=== PATIENT | female | born 1950 | race Caucasian/White ===

== ENCOUNTER 2017-02-25 22:52 | Observation (INO) | payer OTHER ==
[~2017-02-25] VITALS: Ht 160 cm; Wt 77.2 kg
--- NOTE | ~2017-02-25 | DS ---
PATIENT'S NAME: JERRY PERRY [facility] AGE: 66 Y [address] ROOM: [address] [place], [place] [address] LOCATION: [facility] ADMIT DATE: 02/26/2017 Discharge Summary DISCHARGE DATE: 02/27/2017 FAMILY PHYSICIAN: Physician, Unknown ATTENDING PHYSICIAN: Feliberto Lopez V ADMITTING PHYSICIAN: Feliberto Lopez MD CONSULTING PHYSICIAN: Dr. Arredondo, Orthopedics. DISCHARGING PHYSICIAN: Dr. Sharita Qureshi, whom I am dictating this discharge summary for. DISCHARGE DIAGNOSES: 1. Right humerus dislocation. 2. Chronic constipation. 3. Dyslipidemia. DISCHARGE MEDICATIONS: 1. ASA 81 mg daily. 2. Colace 100 mg p.o. q.h.s., may increase to b.i.d. as needed. 3. Multivitamin 1 tablet daily. 4. Zocor 10 mg p.o. daily. 5. APAP 325 two tablets p.o. q.6 hours p.r.n. pain. 6. Oxycodone HCl 5 mg 1 tablet p.o. q.6 hours p.r.n. pain, #60 given with zero refill. 7. Protonix 40 mg p.o. daily p.r.n. indigestion. RADIOLOGIC DATA: 1. CT of the C-spine without contrast, on 02/25/[address] with reconstructions. No fractures. Multiple level degenerative changes noted. 2. CT of the head without contrast on 02/25/[address] of the head. 3. X-ray of the right shoulder, three view, on 02/25/2017: Post-reduction showed stable right shoulder. Girdle normal at this time. HOSPITAL COURSE: Please see admitting H and P dictated by Dr. Lopez for more detailed outline of the patient's presentation. The patient had undergone a mechanical fall and hit the bottom of her chin on the sink and also her shoulder. She was found to have a right inferomedial fracture dislocation of the humeral head. She was evaluated in the ER, admitted, and then ultimately transferred to [facility] for reduction. Dr. Arredondo evaluated the patient in the ER and performed reduction of her dislocation in the ER. The patient did well following this. The patient was PATIENT'S NAME: JERRY PERRY [facility] AGE: 66 Y [address] ROOM: [address] [place] [id number] LOCATION: [facility] ADMIT DATE: 02/26/2017 Discharge Summary DISCHARGE DATE: 02/27/2017 FAMILY PHYSICIAN: Physician, Unknown ATTENDING PHYSICIAN: Feliberto Lopez V held for observation status following this, given her altered mental status after receiving 2 mg of Versed and 50 mg of fentanyl in the ambulance ride. The patient had an uneventful overnight stay. On 02/27/2017, the patient was doing well with her closed reduction and was in a splint. She will need to follow up with Dr. Arredondo in 2 weeks. Her pain was controlled at this time. She is having no nausea. Ultimately, the patient is to discharge to her own home today with no restrictions in diet and is nonweightbearing to the right upper extremity in terms of activity restrictions. She should see Dr. Arredondo on 03/15/2017 at 8:30 a.m. She should follow up with her PCP, Magali Landeros APRN, on 02/03/2017. The patient was given scripts for Roxicodone. The patient voiced understanding of this. This discharge took less than 30 minutes. TERESSA CAMERON PA-C FOR MD LUCERO LEYVA/berkley /[id number] CC: FELIX Cabrera DO d: 02/28/17 0104 t: 03/03/17 1834, DISCHARGE SUMMARY
--- NOTE | ~2017-02-25 | HP ---
PATIENT'S NAME: JERRY PERRY (BECKY) [facility] AGE: 66 Y [address] ROOM: [place] [address] LOCATION: [facility] ADMIT DATE: 02/26/2017 History & Physical DISCHARGE DATE: FAMILY PHYSICIAN: PHYSICIAN, UNKNOWN ATTENDING PHYSICIAN: SHABBIR SHAY V DATE OF SERVICE: CHIEF COMPLAINT: Mechanical fall. HISTORY OF PRESENT ILLNESS: The patient is a relatively healthy 66-year-old female who was consumed a bottle of wine today. She has subsequently undergone a mechanical fall, hit the bottom of her chin on the sink, and also hit her shoulder. She was found to have a right inferomedial fracture dislocation of the humeral head. She was evaluated in the ER in [place] and transferred to [facility] for reduction. The patient has received 2 mg of Versed and 50 of fentanyl in the ambulance and was extremely altered upon arriving to the ER here. In fact, she did not require any conscious sedation for reduction of her dislocation, which was done in the ER by Dr. Arredondo. Dr. Arredondo is not planning on operative fixation of the fracture. An observation admission was requested as the patient was quite sleepy. Because of the nature of her fall, a CT of her head and cervical spine was performed in our ER as well and this is negative. At this point, the patient actually has no complaints and reports that her pain is considerably better. REVIEW OF SYSTEMS: All systems have been reviewed and are negative aside from pertinent positives mentioned above. PAST MEDICAL HISTORY: The patient actually denies any significant past medical history, though she is quite sleepy and this history may not be accurate. SURGICAL HISTORY: Cannot be fully elicited either. CURRENT MEDICATIONS: From a list sent in from [place] are, 1. Aspirin. 2. Pravastatin. PATIENT'S NAME: JERRY PERRY (BECKY) [facility] AGE: 66 Y [address] ROOM: [place] [address] LOCATION: [facility] ADMIT DATE: 02/26/2017 History & Physical DISCHARGE DATE: FAMILY PHYSICIAN: PHYSICIAN, UNKNOWN ATTENDING PHYSICIAN: SHABBIR SHAY V 3. Stool softener. SOCIAL HISTORY: The patient denies any tobacco use since 1999. She reports that she only drinks on weekends. No other toxic habits reported. FAMILY HISTORY: Cannot be elicited due to her sleepiness. PHYSICAL EXAMINATION: VITAL SIGNS: Blood pressure is 127/74, heart rate is in the 70s and regular, end-tidal is in mid 20s. She is afebrile and respirations are 16. GENERAL APPEARANCE: This is a well-developed, well-nourished, middle-aged female, in no acute distress, slightly confused, but still fairly oriented to time and place. NEUROLOGIC: Nonfocal. ENT: Does reveal ecchymosis around her right medial orbit as well as over her inferior aspect of the jaw. LUNGS: Clear to auscultation. HEART: Regular rate and rhythm. GI: Abdomen is soft, nontender, and nondistended. : No costovertebral angle tenderness. MUSCULOSKELETAL: Deferred due to her recent injury. DIAGNOSTIC DATA: Review of the studies from outside facility shows no significant lab abnormalities. ASSESSMENT AND PLAN: This is a 66-year-old female who will be admitted in observation after intoxication, mechanical fall, and a shoulder fracture. At this point, she is quite comfortable and I provided her with very gentle pain control regimen with Tylenol and a very small doses of oxycodone as needed. We will also put her on a bowel regimen in case she does require opioids. Right shoulder dislocation/fracture. We will defer to Orthopedics. Intoxication. I do not believe that the patient has a history of or is at risk for alcohol withdrawal. Additional management will depend on clinical course. Time dedicated to this patient's encounter is 25 minutes. PATIENT'S NAME: JERRY PERRY (ARA Farah [facility] AGE: 66 Y [address] ROOM: [address] [place] [id number] LOCATION: [facility] ADMIT DATE: 02/26/2017 History & Physical DISCHARGE DATE: FAMILY PHYSICIAN: PHYSICIAN, UNKNOWN ATTENDING PHYSICIAN: SHABBIR SHAY V MD FARA RENEE/berkley /[id number] D: [id number] T: [id number] HISTORY & PHYSICAL
--- NOTE | ~2017-02-25 | ER ---
PATIENT'S NAME: JERRY PERRY (BECKY) [facility] AGE: 66 Y [address] ROOM: [place] [address] LOCATION: [facility] ADMIT DATE: 02/26/2017 ER/Outpatient Report DISCHARGE DATE: FAMILY PHYSICIAN: PHYSICIAN, UNKNOWN ATTENDING PHYSICIAN: SHABBIR SHAY V Admission date and time documented on the medical record. I saw the patient at 2300 hours. CHIEF COMPLAINT: Fall and fracture dislocation, right shoulder. HISTORY OF PRESENT ILLNESS: This patient is a 66-year-old female, apparently drank a bottle of wine at home, apparently accidentally fell, hitting her chin on the counter. The patient, I believe, did potentially lose consciousness. It was an unwitnessed fall. The patient was taken to [facility] where a right shoulder x-ray revealed fracture dislocation. She was subsequently transferred by ground ambulance from [place] to [facility] for further evaluation per orthopedic surgeon, Dr. Arredondo. The patient did get CBC and CMS, but no CT scan of the head or cervical spine. She has some ecchymosis in inner periorbital areas and underneath her chin. The patient is pretty much sedated and unable to give me any answers to questions or follow commands much. She did receive some fentanyl and Versed. HOME MEDICATIONS: See attached medication list. ALLERGIES: PENICILLIN. SOCIAL HISTORY: Nonsmoker. Does drink alcohol. SIGNIFICANT PAST MEDICAL HISTORY: From previous charts, dyslipidemia and alcohol abuse. OPERATIONS: Unknown. REVIEW OF SYSTEMS: Unable to obtain review of systems from the patient because of her sedated condition. Again, the patient had Dilaudid a total of 3 mg, fentanyl a total of 50 mcg, and Versed a total of 2 mg prior to arrival here to the emergency department. PATIENT'S NAME: JERRY PERRY (BECKY) [facility] AGE: 66 Y [address] ROOM: [place] [id number] LOCATION: [facility] ADMIT DATE: 02/26/2017 ER/Outpatient Report DISCHARGE DATE: FAMILY PHYSICIAN: PHYSICIAN, UNKNOWN ATTENDING PHYSICIAN: SHABBIR SHAY V PHYSICAL EXAMINATION: HEENT: Head: Normocephalic. The patient has some ecchymosis in the inner aspect of both orbits and ecchymosis underneath her facial chin. Pupils were constricted. Extraocular muscles appeared to be intact. No subconjunctival hemorrhage or hyphema. Ears: Clear TMs bilaterally. No blood behind the drums. No fluid in the canals. Nose: Clear. No epistaxis. Throat: Clear. Mucous membranes moist. Teeth, jaw intact. NECK: No nuchal rigidity. No tenderness. SPINE: Negative. LUNGS: Clear. No rales, rhonchi, or wheezes. HEART: Regular. Pulses palpable. ABDOMEN: Flat, soft, nondistended, nontender. Good bowel tones. No organomegaly or abnormal mass palpable. EXTREMITIES: The patient has obvious dislocation of the right shoulder. No open wounds. No peripheral edema or cyanosis. NEURO: The patient is sedated, but does not appear to have any lateralizing signs or symptoms. SKIN: Clear other than the facial ecchymosis. DIAGNOSTIC DATA: CT scan of the head showed no intracranial bleed, midline shift, mass effect, or skull fracture. CT scan of the cervical spine showed no acute fracture, does have some degenerative changes. CT scans read by Radiology, see dictated transcribed report. I did review the right shoulder x-ray as well as laboratory studies from [place]. I did discuss this patient with Dr. Arredondo, orthopedic surgeon. Dr. Arredondo did come to the emergency room and did close reduction of the right shoulder dislocation. Discussed the patient with Dr. Shay, hospitalist. IMPRESSION: Accidental fall, most likely secondary to acute intoxication of alcohol. The patient has some ecchymosis in the inner aspect of periorbital areas and underneath her chin. Quite sedated with narcotics and Versed. The patient did suffer dislocation fracture of the right shoulder. PLAN: The patient will be admitted to the hospital for observation. The patient will be admitted by Dr. Shay, hospitalist. She will be followed by Dr. Arredondo, orthopedic surgeon. ROMANA MCBRIDE MD PATIENT'S NAME: JERRY PERRY (BECKY) [facility] AGE: 66 Y [address] ROOM: [id number] [place] [id number] LOCATION: [facility] ADMIT DATE: 02/26/2017 ER/Outpatient Report DISCHARGE DATE: FAMILY PHYSICIAN: PHYSICIAN, UNKNOWN ATTENDING PHYSICIAN: SHABBIR SHAY/berkley /[id number] d: 02/26/17 0126 t: 02/26/17 1819, OUTPATIENT REPORT
--- NOTE | ~2017-02-25 | OR ---
PATIENT'S NAME: JERRY JAMESON [facility] AGE: 66 Y [address] ROOM: [address] [place], [place] [address] LOCATION: [facility] ADMIT DATE: 02/26/2017 OR/Procedure Report DISCHARGE DATE: FAMILY PHYSICIAN: PHYSICIAN, UNKNOWN ATTENDING PHYSICIAN: SHABBIR SHAY V SURGEON: Rober Bacon DO COOK FAST FOOD: DATE OF PROCEDURE: 02/25/2017 This is a 66-year-old female with a chief complaint of right shoulder pain. I had got most of her history from her son who was present at the time of the injury. Her son is Aldo Jameson, 32-year-old male, who states she was drinking tonight, drank at least a bottle of wine. She became dizzy and fell in the kitchen where she hit her chin and her right shoulder. She was seen in [place] in the emergency department where the doctor called me with history of right shoulder dislocation with fracture about the greater tuberosity region. Dr. Alba was not comfortable with treating this and referred her here to get examined. She will be evaluated by Dr. Diaz, the ER doc with planned CT of her head. On exam, patient is alert to person, place, and time. She knows where she is out, what year it is. However, she has been sedated with benzo's, Dilaudid and then alcohol during the recent transit by the EMS. She is able to cooperate with exam. Her head, she has bruising over her chin and right eye. Her pupils are constricted and equal, are reactive to the light. She has no tenderness over her cervical, thoracic, and lumbar spine. She moves bilateral lower extremities and left upper extremity without pain. Her right upper extremity, she keeps maintained externally rotated and any pain with attempted motion is present. She is able to follow commands and exam. She is able to make an okay, thumbs up, abduction, and adduction of phalanges with normal sensation. Her abdomen is soft and nontender. There is no swelling or ecchymosis around her lower extremities or left upper extremity. She has no tenderness over her ribs and breathes without use of accessory muscles. X-rays from [place], minimal view, show dislocated right shoulder with greater tuberosity fracture. TREATMENT PLAN: Closed reduction. Further recommendations based on fracture position after reduction. She will need to be admitted to the hospitalist with CT scan of her head and sober up. PROCEDURE: Closed reduction, right shoulder fracture dislocation. ANESTHESIA: Already on board from recent EMS transport on top of alcohol. COMPLICATIONS: None. DESCRIPTION OF PROCEDURE: With single attempt closed reduction, the shoulder PATIENT'S NAME: JERRY JAMESON [facility] AGE: 66 Y [address] ROOM: [place] [address] LOCATION: [facility] ADMIT DATE: 02/26/2017 OR/Procedure Report DISCHARGE DATE: FAMILY PHYSICIAN: PHYSICIAN, UNKNOWN ATTENDING PHYSICIAN: SHABBIR SHAY. It was stable throughout range of motion. I was able to abduct her and externally rotate and internally rotate with good stability. She will be placed in a sling. Her postop exam, she had normal sensation in median, radial, and ulnar nerve distribution. She is able to fire her deltoid. No evidence of neurapraxia. She will be admitted to the hospitalist and undergo further evaluation. No re-evaluate her tomorrow when she is sober. We will take x-rays, three views of the right shoulder and make further definitive plans based on those findings and serial exams. ROBER BACON DO PH/modl /[id number] d: 02/26/171 t: 02/27/17 1410, OPERATIVE SUMMARY
[2017-02-26] MEDS ORDERED: ASPIRIN LO-DOSE81 MG PO (02:12)
[2017-02-26] MEDS ORDERED: THERA-VITE W/ B1 TAB PO (02:13)
[2017-02-26] MEDS ORDERED: PROTONIX40 MG PO (02:14)
[2017-02-26] MEDS ORDERED: COLACE100 MG PO (02:15)
[2017-02-26] MEDS ORDERED: ZOCOR10 MG PO (02:15)
--- NOTE | 2017-02-26 04:18 | NUR ---
Significant Event: Admitted from ER at 0140. Fell at home after drinking 1.5 bottles of wine. Bruised chin, reddened/bruised nose, black right eye. Anxious. No pain if still. Very sleepy. Dr Arredondo located right shoulder back into place. Possible dismissal later today. Son will be coming from [place]. 3L O2 per nasal cannula. VSS. wiggles right fingers, full sensation. Voided large amount in ER before coming up in wheelchair. Follow up:
--- NOTE | 2017-02-26 05:38 | NUR ---
Tylenol 650 mg po at 0500 for pain, sleeping at 0540. Zofran at 0510 for nausea, no emesis.
--- NOTE | 2017-02-26 06:43 | NUR ---
Admission Note: Admitted from OR at 0140. Very sleepy. VSS, CSM WNL. Right arm in sling. Possible dismissal today. Dr Arredondo located shoulder back into place, will see her later today. Tylenol at 0505, Zopfran at 0510, Roxicodone 0605.
[2017-02-26 15:36] LABS: BILIRUBIN URINE NEGATIVE (NEGATIVE); BLOOD URINE NEGATIVE /UL (NEGATIVE); COLOR URINE YELLOW (YELLOW); GLUCOSE URINE NEGATIVE (NEGATIVE); KETONE URINE 5 mg/dL (NEGATIVE); LEUKOCYTES URINE 25 /UL (NEGATIVE); NITRITE URINE NEGATIVE (NEGATIVE); PH URINE 6.5 (4.0-8.0); PROTEIN URINE NEGATIVE (NEGATIVE); TURBIDITY URINE CLEAR (CLEAR); UROBILINOGEN URINE NORMAL (NORMAL)
[2017-02-26 15:51] LABS: EPITHELIAL URINE 0-2 #/HPF (NEGATIVE); RBC URINE NEGATIVE #/HPF (NEGATIVE)
[2017-02-26 15:52] LABS: BACTERIA URINE RARE (NEGATIVE); MUCUS URINE 2+ (NEGATIVE)
--- NOTE | 2017-02-26 16:49 | NUR ---
Significant Event: Pt is a/o. Cooperative with cares. Has voided in BR and sat in chair. 1 assist, gait belt. CSM WNL R) fingers. Sling to R) arm. ice bag prn. Bruising noted to R) eye, nose and chin. SL L) AC. Needs O2 2L only when sleeping. UA sent to lab. Ana last @ 1600 Pneumatics on. Poss discharge tomorrow. Follow up:
--- NOTE | 2017-02-27 00:41 | NUR ---
Significant Event: Patient is alert and oriented x 3. Denies numbness or tingling. Does c/o pain to right shoulder-has roxicodone and tylenol available for pain. Rests quietly in bed most of the shift. Uses call light appropriately. Cooperative with cares. Moves spontaneously and follows commands. Repositions self. RUE in sling. Moderate strength. 2+ pulses. Up to restroom. Bowel sounds active. No BM this shift. Refused stool softener. 1PA, gait belt. Refused SCDs. Bruising to right eye, nose, and chin. IV SL to let AC with no complications. HTN. SR-ST. On room air while awake. On 2L O2 via NC while sleeping. aware and states patient can follow up with provider outpatient and that a trend ox was not necessary tonight. O2 dropped as low as 87% while on room air while sleeping. Follow up: discharge home today, pain management
[2017-02-27 04:26] LABS: BASOPHIL % 0.4 %; EOSINOPHIL # 0.1 K/uL (0.0-0.5); HEMATOCRIT 38.8 % (33.0-46.0); HEMOGLOBIN 12.8 g/dL (10.0-15.0); IMMATURE GRANULOCYTE % 0.2 %; LYMPHOCYTE # 1.8 K/uL (0.8-4.0); LYMPHOCYTE % 22.2 %; MCV 91.1 fl (83.0-98.0); MONOCYTE # 0.7 K/uL (0.0-1.0); MONOCYTE % 8.7 %; MPV 9.7 fl (9.4-12.4); NEUTROPHIL # (ANC) 5.6 K/uL (1.8-7.8); NEUTROPHIL % 67.5 %; NRBC % 0 /100WBC (0-0.00); PLATELET COUNT 237 K/uL (150-450); RBC 4.26 M/uL (3.50-5.50); WBC 8.3 K/uL (4.0-11.0)
[2017-02-27 04:44] LABS: ALBUMIN 3.4 gm/dL (3.5-5.0); ALK PHOS 74 IU/L (33-138); ALT 28 IU/L (12-78); ANION GAP 11.1 (10.0-19.0); AST 23 IU/L (10-40); BLOOD UREA NITROGEN 14 mg/dL (6-24); CALCIUM 8.1 mg/dL (8.5-10.5); CHLORIDE 105 mMol/L (96-110); CO2 26 mMol/L (22-32); CREATININE 0.7 mg/dL (0.5-1.1); ESTIMATED GFR (MDRD EQUATION) > 60; POTASSIUM 4.1 mMol/L (3.7-5.1); SODIUM 138 mMol/L (135-145); TOTAL BILIRUBIN 0.5 mg/dL (0.0-1.5); TOTAL PROTEIN 6.6 g/dL (6.0-8.4)
--- NOTE | 2017-02-27 05:12 | NUR ---
Significant Event: AAOx3, slight numbness present to R) upper arm. PERRLA 3mm brisk. RUE able to wiggle fingers and moderate hand grasp, 2+ pulse absent edmea, arm sling present and elevated with pillow. Moves spontaneously and on command. Systolic 120's, HR 60's. L.S. clear throughout on 2L while sleeping otherwise RA. B.S. active, last BM 02/25. Urinates per SBA to BR. PIV L) forearm SL'd. Regular diet. Gave Tylenol at 0300, Roxicodone given at 0400; relief noted. Follow up: Plan for home today
--- NOTE | 2017-02-27 13:48 | NUR ---
1015 Introduced self and CM role to Lacy. She tells me that she lives at home alone, in [place] and she is planning on returning there later today as soon as doctors round. Lacy states that her son will be around to help her out if she should need anything. She also says that he will be picking her up today when she is cleared for dismissal. Lacy does her own medications at home, gets them filled at [facility] in [place]. She sees' Dr. Pruitt as a PCP. She denies any need for additional DME or HHC upon dismissal. No other questions, needs or concerns at this time. CM to continue to follow and assist. Plan home.
[2017-02-27] MEDS ORDERED: TYLENOL325 MG PO (16:23)
[2017-02-27] MEDS ORDERED: ROXICODONE 5MG (5 MG PO (16:24)
--- NOTE | 2017-02-27 16:42 | NUR ---
Patient was AOx3. VSS. CSM WNL. Sling intact. Patient had no questions or concerns about discharge instructions. Roxicodone 5mg tab given at 1600. Patient wheeled to [facility] for discharge home with son at 1640.
== END 2017-02-27 16:44 | disposition disaster alternative care site (69) ==
LOC: GACC 22:52 → GNTU 02-26 00:20
PROVIDERS: Family Medicine; ADMIT Internal Medicine
DX: S43.004A Unspecified dislocation of right shoulder joint, initial encounter (principal); K59.09 Other constipation; E78.5 Hyperlipidemia, unspecified; Z79.82 Long term (current) use of aspirin; Z79.891 Long term (current) use of opiate analgesic; Z79.899 Other long term (current) drug therapy; W19.XXXA Unspecified fall, initial encounter
CPT/HCPCS: G0378; J2405